=== PATIENT | female | born 1940 | race Caucasian/White ===

== ENCOUNTER → 2017-11-09 12:12 | Outpatient (CLI) | payer MEDICARE, OTHER, SELFPAY ==
--- NOTE | 2017-11-09 | DI.CT.S_ITS ---
PROCEDURE: CT HEAD/BRAIN WO CON INDICATIONS: HEADACHE TECHNIQUE: Noncontrast 4.5 mm thick angled axial sections acquired from the foramen magnum to the vertex, with coronal and sagittal reformats. For radiation dose reduction, the following was used: automated exposure control, adjustment of mA and/or kV according to patient size. COMPARISON: [facility], CT, HEAD WITHOUT CONTRAST, 10/02/2016, 12:38. [facility], CT, HEAD WITHOUT CONTRAST, 02/23/2015, 12:28. [facility], CT, HEAD WITHOUT CONTRAST, 09/15/2013, 11:39. FINDINGS: Image quality: Excellent. CSF spaces: Basal cisterns are patent. No extra-axial fluid collections. The ventricles are symmetric in size and shape. Brain: No intracranial bleeds or masses. There is cerebral volume loss for age, with resultant ventricular and sulcal prominence. There are periventricular and deep white matter chronic small vessel ischemic changes. There is intracranial internal carotid artery atherosclerosis. Skull and face: Calvarium and visualized facial bones appear intact, without suspicious lesions. Sinuses: Visualized sinuses and mastoids are clear. IMPRESSION: No acute process. No explanation for headache. Dictated by: Pieter Browning M.D. on 11/09/2017 at 14:26 Approved by: Pieter Browning M.D. on 11/09/2017 at 14:28
== END ==
PROVIDERS: Family Provider Physician Assistant Medical; PCP Physician Assistant Medical; Visit Provider Physician Assistant Medical
DX: R51 Headache (principal)
CPT/HCPCS: 70450

== ENCOUNTER 2018-04-01 19:41 | Emergency (ER) | payer MEDICARE, OTHER, SELFPAY ==
[2018-04-01] VITALS (7 sets, daily range): BP systolic 137–177; BP diastolic 69–89; PULSE 63–77; RESP 13–19; TEMP 36.6; O2SAT 98–100; BMI 22.5
--- NOTE | 2018-04-01 19:59 | DI.RAD.S_ITS ---
PROCEDURE: XR CHEST 1V INDICATIONS: chest pain TECHNIQUE: One view of the chest was acquired. COMPARISON: [facility], , CHEST 1 VIEW, 02/23/2015, 12:19. FINDINGS: Surgical changes and devices: None. Lungs and pleura: No pleural effusions or pneumothorax. Lungs are clear. Mediastinum: Mediastinal contours appear normal. Heart size is normal. Bones and chest wall: No suspicious bony lesions. Overlying soft tissues appear unremarkable. IMPRESSION: 1. No acute cardiopulmonary disease. Dictated by: Dago Claros M.D. on 04/01/2018 at 20:58 Approved by: Dago Claros M.D. on 04/01/2018 at 20:59
[2018-04-01 20:04] LABS: Add Manual Diff / Slide Review NO; Eosinophils Percent Auto 1.9 % (2-4); Hematocrit 37.6 % (36-46); Hemoglobin 12.8 g/dL (12.0-16.0); Lymphocytes Percent Auto 30.2 % (25-40); Mean Corpuscular Hemoglobin 30.4 PG (26-34); Mean Corpuscular Volume 89.4 fL (80-100); Monocytes Percent Auto 8.1 % (3-14); Neutrophils Absolute Auto 3500 /uL (3000-5900); Neutrophils Percent Auto 58.8 % (50-75); Platelet Count 201 X10^3/uL (150-400); Red Blood Cell Count 4.21 X10^6/uL (4.0-5.2); Red Cell Distribution Width 13.3 % (11.6-14.8)
[2018-04-01 20:08] LABS: INR 1.1 (0.9-1.3); Prothrombin Time 11.7 SECONDS (10.1-12.7)
[2018-04-01 20:11] LABS: PTT Partial Thromboplastin Tim 31 SECONDS (26.4-36.2)
[2018-04-01 20:13] LABS: Alanine Aminotransferase 13 IU/L (9-52); Albumin 4.6 g/dL (3.5-5.0); Albumin Globulin Ratio 1.4 (1.0-2.8); Alkaline Phosphatase 65 U/L (38-126); Aspartate Aminotransferase 31 IU/L (14-36); BUN Creatinine Ratio 23.8 (6-22); Bilirubin Total 0.5 mg/dL (0.2-1.3); Blood Urea Nitrogen 19 mg/dL (7-17); Carbon Dioxide 28 mmol/L (22-32); Chloride 102 mmol/L (98-107); Creatine Kinase 80 U/L (30-135); Estimated Glomerular Filt Rate > 60.0 mL/min (>60); Globulin 3.2 g/dL (1.7-4.1); Glucose 118 mg/dL (80-110); HEMOLYSIS 29 (0-50); Lipase 129 U/L (23-300); Potassium 3.9 mmol/L (3.4-5.1); Sodium 141 mmol/L (137-145); Total Protein 7.8 g/dL (6.3-8.2)
[2018-04-01] MEDS: ASPIRIN 81 MG TAB 324 MG PO (20:16)
[2018-04-01 20:24] LABS: Troponin I < 0.012 ng/mL (0.01-0.034)
--- NOTE | 2018-04-01 20:46 | ED_ITS ---
HPI - Chest Pain General Chief Complaint: Chest Pain Stated Complaint: CHEST PAIN BACK PAIN Time Seen by Provider: 04/01/18 19:50 Source: patient Mode of arrival: ambulatory Limitations: no limitations History of Present Illness HPI narrative: Patient is a 78-year-old female who presents with chest pain has been ongoing for the last couple of days. Today she was feeling extremely nauseated as if she tried to eat something she got very nauseous afterwards. She did have a big mac sometime today which she thinks may be made the pain worse. Sometimes her left arm has hurt it does not hurt now. She does have a history of rib displacement she recently had this she went to a chiropractor as she says that was feeling better she thinks this is different. With her ribs around hurt every time she took of breath this does not feel that way. She states that it seems to be worse when she is at rest but when she notices it the most. She is pretty busy she takes care of her it has not slowed her down today. She just wanted make sure was not a heart attack. MD complaint: chest pain Onset (ago): day(s) Related Data Home Medications Medication Instructions Recorded Confirmed alprazolam 0.25 mg PO Q8HP #0 11/27/11 aspirin 81 mg PO QDAY #0 11/27/11 ramipril [Altace] 5 mg PO QDAY #0 11/27/11 Allergies Allergy/AdvReac Type Severity Reaction Status Date / Time erythromycin base Allergy Unknown HIVES Verified 04/01/18 19:47 Review of Systems Review of Systems GENERAL: Denies chills, fatigue, malaise, fever, sweats, travel HEENT: Denies sinus pain, ear pain, sore throat, difficulty swallowing, neck pain RESPIRATORY: Denies dyspnea, cough, wheezing, hemoptysis, sputum. CARDIOVASCULAR: See HPI GASTROINTESTINAL: Denies nausea, vomiting, abdominal pain, diarrhea, constipation, melena. : Denies dysuria, frequency, incontinence, hematuria, urinary retention, flank pain. MUSCULOSKELETAL: Denies weakness, joint pain, or bony pain SKIN: No rash, no erythema, no pruritus NEUROLOGIC: Denies weakness, dizziness, headache, numbness, change in speech, confusion PSYCHIATRIC: No concerning psychosocial issues. 12 point review of systems is negative except for those stated above and HPI PFSH Medical History Hypertension (Acute) Social History Smoking Status: Former smoker alcohol intake: never substance use type: does not use Exam Initial Vital Signs Initial Vital Signs: Vital Signs Temperature 97.9 F 04/01/18 19:47 Pulse Rate 77 04/01/18 19:47 Respiratory Rate 16 04/01/18 19:47 Blood Pressure 177/89 H 04/01/18 19:47 Pulse Oximetry 100 04/01/18 19:47 GENERAL: Alert well-appearing elderly female in no acute distress HEENT: Head atraumatic,EOMI, pupils reactive, face symmetric, CARDIOVASCULAR: Regular rate and rhythm without murmurs, rubs or gallops. RESPIRATORY: Breath sounds equal bilaterally, no wheezes rales or rhonchi. ABDOMEN: Soft, nontender. Normoactive bowel sounds all 4 quadrants. No guarding or rebound. EXTREMITIES: Normal range of motion, no clubbing or edema. Neurovascularly intact NEUROLOGICAL: Alert and oriented x4.Normal gait and speech. SKIN: Warm, dry, no laceration, no petechiae, no rashes or lesions. Scores HEART Score Heart Score history: Slightly Suspicious Heart Score EKG: Normal Heart Score Age: > or = 65 years old Heart Score risk factors: 1-2 risk factors Heart Score troponin: < or = to normal limit Heart Score Total: 3 Course Orders Ordered: ED Orders 04/01/18 19:55 Complete Blood Count AUTO DIFF Stat Comprehensive Metabolic Panel Stat Lipase Stat Partial Thromboplastin Time Stat Prothrombin Time INR Stat Troponin & CK Cardiac Panel Stat 04/01/18 19:59 XR chest 1V Stat EKG-12 Lead Stat 04/01/18 22:02 Troponin I Stat Discontinued Medications Acetaminophen (Tylenol) 650 mg PO NOW ONE Stop: 04/01/18 21:27 Last Admin: 04/01/18 21:41 Dose: 650 mg Aspirin (Aspirin Chew) 324 mg PO NOW ONE Stop: 04/01/18 20:12 Last Admin: 04/01/18 20:16 Dose: 324 mg Pantoprazole Sodium (Protonix) 40 mg IV NOW ONE Stop: 04/01/18 21:27 Last Admin: 04/01/18 21:41 Dose: 40 mg Vital Signs - 8 hr 04/01/18 20:00 04/01/18 20:30 04/01/18 21:00 Pulse Rate 71 71 68 Respiratory Rate 19 15 13 Blood Pressure Blood Pressure [Left Arm] 161/83 H 144/74 H 145/87 H Pulse Oximetry 100 98 99 04/01/18 21:30 04/01/18 22:00 04/01/18 22:46 Pulse Rate 72 63 67 Respiratory Rate 15 15 19 Blood Pressure 140/69 Blood Pressure [Left Arm] 137/75 147/80 H Pulse Oximetry 100 99 100 MDM - Chest Pain Lab Data Attestation: I reviewed the patient's lab results. Result diagrams: 04/01/18 19:55 04/01/18 19:55 Lab Results 04/01/18 04/01/18 04/01/18 Range/Units 19:55 19:55 19:55 WBC 6.0 (4.5-11.0) X10^3/uL RBC 4.21 (4.0-5.2) X10^6/uL Hgb 12.8 (12.0-16.0) g/dL Hct 37.6 (36-46) % MCV 89.4 (80-100) fL MCH 30.4 (26-34) PG MCHC 34.0 (30-36) % RDW 13.3 (11.6-14.8) % Plt Count 201 (150-400) X10^3/uL Neut % (Auto) 58.8 (50-75) % Lymph % (Auto) 30.2 (25-40) % Huntington % (Auto) 8.1 (3-14) % Eos % (Auto) 1.9 L (2-4) % Baso % (Auto) 1.0 (0-2) % Neut # (Auto) 3500 (8146-5077) /uL PT 11.7 (10.1-12.7) SECONDS INR 1.1 (0.9-1.3) APTT 31 (26.4-36.2) SECONDS Sodium 141 (137-145) mmol/L Potassium 3.9 (3.4-5.1) mmol/L Chloride 102 (98-107) mmol/L Carbon Dioxide 28 (22-32) mmol/L BUN 19 H (7-17) mg/dL Creatinine 0.80 (0.52-1.04) mg/dL Estimated GFR > 60.0 (>60) mL/min BUN/Creatinine Ratio 23.8 H (6-22) Glucose 118 H (80-110) mg/dL Calcium 10.0 (8.4-10.2) mg/dL Total Bilirubin 0.5 (0.2-1.3) mg/dL AST 31 (14-36) IU/L ALT 13 (9-52) IU/L Alkaline Phosphatase 65 (38-126) U/L Total Creatine Kinase 80 (30-135) U/L CK-MB (CK-2) TNP CK-MB (CK-2) Rel Index TNP Troponin I < 0.012 (0.01-0.034) ng/mL Total Protein 7.8 (6.3-8.2) g/dL Albumin 4.6 (3.5-5.0) g/dL Globulin 3.2 (1.7-4.1) g/dL Albumin/Globulin Ratio 1.4 (1.0-2.8) Lipase 129 (23-300) U/L /06/07 Range/Units 22:02 WBC (4.5-11.0) X10^3/uL RBC (4.0-5.2) X10^6/uL Hgb (12.0-16.0) g/dL Hct (36-46) % MCV (80-100) fL MCH (26-34) PG MCHC (30-36) % RDW (11.6-14.8) % Plt Count (150-400) X10^3/uL Neut % (Auto) (50-75) % Lymph % (Auto) (25-40) % Huntington % (Auto) (3-14) % Eos % (Auto) (2-4) % Baso % (Auto) (0-2) % Neut # (Auto) (6733-3460) /uL PT (10.1-12.7) SECONDS INR (0.9-1.3) APTT (26.4-36.2) SECONDS Sodium (137-145) mmol/L Potassium (3.4-5.1) mmol/L Chloride (98-107) mmol/L Carbon Dioxide (22-32) mmol/L BUN (7-17) mg/dL Creatinine (0.52-1.04) mg/dL Estimated GFR (>60) mL/min BUN/Creatinine Ratio (6-22) Glucose (80-110) mg/dL Calcium (8.4-10.2) mg/dL Total Bilirubin (0.2-1.3) mg/dL AST (14-36) IU/L ALT (9-52) IU/L Alkaline Phosphatase (38-126) U/L Total Creatine Kinase (30-135) U/L CK-MB (CK-2) CK-MB (CK-2) Rel Index Troponin I < 0.012 (0.01-0.034) ng/mL Total Protein (6.3-8.2) g/dL Albumin (3.5-5.0) g/dL Globulin (1.7-4.1) g/dL Albumin/Globulin Ratio (1.0-2.8) Lipase (23-300) U/L Imaging Data Chest x-ray: Radiologist's impression: PROCEDURE: XR CHEST 1V INDICATIONS: chest pain TECHNIQUE: One view of the chest was acquired. COMPARISON: [facility], CHEST 1 VIEW, 02/23/2015, 12:19. FINDINGS: Surgical changes and devices: None. Lungs and pleura: No pleural effusions or pneumothorax. Lungs are clear. Mediastinum: Mediastinal contours appear normal. Heart size is normal. Bones and chest wall: No suspicious bony lesions. Overlying soft tissues appear unremarkable. IMPRESSION: 1. No acute cardiopulmonary disease. Dictated by: Dago Claros M.D. on 04/01/2018 at 20:58 ECG Data Attestation: I personally reviewed and interpreted this ECG as follows: Prior ECG tracings: available for review Interpretation: EKG 1.: Normal sinus rhythm rate [address] changes no T- wave inversions similar to previous EKG in 2014 EKG 2. Sinus rhythm rate 61 normal intervals similar to previous EKG no ischemia MDM Narrative Medical decision making narrative: Patient overall is feeling much better after Protonix. She states that she actually did see Dr. Smith at some point a few years ago she had a cardiac catheterization, which per patient she said is normal. She has 2-troponins normal ECGs is chest pain-free after Protonix. The pain in symptoms not consistent with cardiac. At this time recommend outpatient workup if needed. I discussed all findings with the patient and daughter, Education has been performed regarding treatment plan, diagnosis, warning signs and symptoms and all concerns have been addressed. Verbally agree with and understood all of the above. Discharge Plan Departure Patient Disposition: Home Clinical Impression: Atypical chest pain Discharge Date/Time: 04/01/18 22:47 Interventions: ED Discharge Assessment Last Done: 04/01/18 22:46 Instructions: DI for Atypical Chest Pain Activity Restrictions/Additional Instructions: *You have been diagnosed with atypical chest *What to do: may require further cardiac evaluation with your primary doctor or your compliance and control analyst *Continue to take medications as directed *Follow up with your primary care provider in 2-3 days *Return to ER if you should have worsening chest pain, shortness of breath, nausea or any new, worsening or concerning symptoms Prescriptions: No Action aspirin 81 MG tablet,delayed release (DR/EC) 81 mg PO QDAY Qty: 0 RF: 0 alprazolam 0.25 MG tablet 0.25 mg PO Q8HP Qty: 0 RF: 0 ramipril [Altace] 5 MG capsule 5 mg PO QDAY Qty: 0 RF: 0 Referrals: Su Zhu PA-C [Primary Care Provider] -
[2018-04-01] MEDS: ACETAMINOPHEN 325 MG TABLET 650 MG PO (21:41)
[2018-04-01] MEDS: PANTOPRAZOLE 40 MG VIAL IV (21:41)
[2018-04-01 22:31] LABS: Troponin I < 0.012 ng/mL (0.01-0.034)
== END 2018-04-01 22:47 | disposition home or self-care (01) ==
PROVIDERS: Emergency Provider Emergency Medicine; Family Provider Physician Assistant Medical; PCP Physician Assistant Medical
DX: R07.89 Other chest pain (principal)
CPT/HCPCS: 36415; 36591; 71045; 80053; 82550; 83690; 84484; 85025; 85610; 85730; 93005; 93010; 96374; 99283; 99285; C9113

== ENCOUNTER → 2018-04-18 13:40 | Outpatient (CLI) | payer MEDICARE, OTHER, SELFPAY ==
--- NOTE | 2018-04-18 14:53 | PM.TREADMILL ---
Cardiac Stress Test Report Referral & Results Date Patient Seen: 04/18/18 Requesting provider: Marlyn Clifford Indication: Atypical chest pain Rest ECG: Unremarkable Procedure Note: Today following both written and verbal informed consent, the patient was exercised according to a standard Josiah protocol. The patient exercised for a total of 6 min 22 sec achieving a maximum heart rate of 157. Patient's maximum systolic blood pressure was 180. This was an estimated 7.0 MET's. With exercise patient did develop up to about a mm of flat to upsloping ST segment depression in the inferior leads and far lateral leads. These rapidly resolved in recovery although they still were somewhat depressed over baseline. Patient was asymptomatic. Functional aerobic impairment was off the scale estimate at-20% on the active scale Rare PVCs were also identified Impression: I cannot call this a normal study. There may be an element of ischemia present given the ST segment changes but they are very nonspecific and atypical. Given patient's excellent exercise capacity and worse I have a call this a low risk study. If clinical condition warrants this could be repeated with perfusion imaging as well. Discussed with patient before she left the procedure room as well. Please note: Actual ECG tracings can be found in the PACS system.
== END ==
PROVIDERS: PCP Physician Assistant Medical; Visit Provider Nurse Practitioner
DX: R07.89 Other chest pain (principal); R94.39 Abnormal result of other cardiovascular function study
CPT/HCPCS: 93016; 93017; 93018

== ENCOUNTER → 2018-05-20 08:05 | Outpatient (CLI) | payer MEDICARE, OTHER, SELFPAY ==
--- NOTE | 2018-05-20 10:18 | P.PCN_ITS ---
Cardiac Stress Test Report Referral & Results Date Patient Seen: 05/20/18 Requesting provider: Su Zhu Indication: Abnormal previous treadmill Rest ECG: Unremarkable Procedure Note: Today following both written and verbal informed consent the patient was exercised according to a standard Joisah protocol patient went for a total of 6 min 20 sec achieving a maximum heart rate of 146 maximum systolic blood pressure of 170. This is approximately 7.0 METS. Exercise was terminated at this point because of targets having been met. Patient was also given Cardiolite through a previously started Hep-Lock IV by the nuclear equipment test engineer approximately 1 minute prior to the cessation of exercise. There were no ST-T segment changes identified this time as opposed to her previous treadmill Functional aerobic impairment rated-5% on the active scale or 105% of normal Impression: No evidence of ischemia, changes seen previously that were nonspecific are not seen this time. Perfusion imaging to be reported separately Please note: Actual ECG tracings can be found in the PACS system.
--- NOTE | 2018-05-23 16:34 | DI.NM.S_ITS ---
DATE OF SERVICE: 05/20/2018 PROCEDURE: Exercise perfusion study. INDICATIONS: Chest pain, back pain with underlying hypertension, hyperlipidemia. RADIOPHARMACEUTICAL: 25.5 mCi technetium-99m Myoview IV was injected at stress and 25.0 mCi technetium-99m Myoview IV was injected at rest. CARDIAC STRESS: Patient underwent exercise perfusion study under the supervision of an attending staff using standard Josiah protocol. She walked on Josiah protocol for 6 minutes 20 seconds and achieved 7 METs of workload with functional aerobic impairment of -5%. She achieved 103% of target heart rate. There is normal blood pressure response. No active chest pain. Baseline rhythm was sinus. During stress, there were some nonspecific upsloping ST depression in the inferolateral leads. No significant arrhythmias seen. RAW DATA: There appears to be increased subdiaphragmatic activity. GATED STUDY: Resting LV ejection fraction 76 and stress LV ejection fraction reported to be 91%. I don't see any obvious wall motion abnormalities. No transient ischemic dilatation. Resting end-diastolic volume is 59 mL. TID ratio is 0.67, which is within normal limits. Lung/heart ratio is 0.30, which is within normal limits. MYOCARDIAL PERFUSION SCAN: Resting supine images revealed moderate-sized mild-to - moderately decreased perfusion of inferior wall, basal inferoseptum. Stress supine images revealed small size mildly decreased perfusion of base- to-mid inferior wall. During prone, all those perfusion defects got normalized. No convincing ischemia infarction seen during stress prone images. CONCLUSION: I will call this study a normal myocardial perfusion study with evidence of most likely diaphragmatic tissue attenuation artifact which got resolved during prone images. Left ventricular (LV) function is preserved. No transient ischemic dilatation. Functional aerobic impairment -5%. No significant arrhythmias. Overall this is a low-risk myocardial perfusion scan. Mary Solo - [employer]/gris/ab doc#: [id number]/job#: [id number] dd: 05/23/2018 12:36:00 dt: 05/23/2018 15:59:00 DICTATING MD/COPIES TO: Coco Foreman MD COPIES MNE: NIC
== END ==
PROVIDERS: PCP Physician Assistant Medical; Visit Provider Physician Assistant Medical
DX: R94.39 Abnormal result of other cardiovascular function study (principal); R07.9 Chest pain, unspecified; M54.9 Dorsalgia, unspecified; I10 Essential (primary) hypertension; E78.5 Hyperlipidemia, unspecified
CPT/HCPCS: 78452; 93016; 93017; 93018; A9502

== ENCOUNTER → 2020-07-12 13:36 | Outpatient (CLI) | payer MEDICARE, OTHER, SELFPAY ==
--- NOTE | 2020-07-12 | DI.ECHO.S_ITS ---
[facility]---------+ [facility] +---------+ : : [address] [place] : : : : [id number] : : : : Phone: [phone] Echocardiogram Report + + :Name: SAMUEL FERMIN Study Date: 07/12/2020 Height: 68 in : :[facility] ReadingLocation: Weight: 145 lb : : Gender: Female BSA: 1.8 m2 : :: 1940 Age: 80 yrs BP: 152/81 mmHg: :Reason For Study: Chest Pain : :Ordering Physician: SOMMER, : :BLAYNE Performed By: Chapis Gunderson : :Referring: BLAYNE NOVOA : + + Interpretation Summary Normal both left and right ventricle size and function. The ejection fraction is 60-65%. Normal both atria. No valvular abnormality. Comparison is made with the echocardiogram of 03/21/2015, there has been no significant change. Procedure: A two-dimensional transthoracic echocardiogram with color flow and Doppler was performed. The study quality was technically adequate. Comparison is made with the echocardiogram of 03/21/2015. The patient was in normal sinus rhythm during the exam. Left Ventricle: The left ventricle is normal in size and wall thickness. The ejection fraction is estimated to be 60-65%. There are no focal wall motion abnormalities. Right Ventricle: The right ventricle is normal in size and function. Atria: The left atrial size is normal. Right atrial size is normal. There is no Doppler evidence for an interatrial shunt. Mitral Valve: The mitral valve is normal in structure and function. There is trace mitral regurgitation. Aortic Valve: The aortic valve is trileaflet. The aortic valve opens well. No aortic regurgitation is present. Tricuspid Valve: The tricuspid valve is normal in structure and function. There is a trace or physiologic amount of tricuspid regurgitation. The right ventricular systolic pressure is estimated to be at least 23 mmHg based on an estimated right atrial pressure of 3 mm Hg. Pulmonic Valve: The pulmonic valve leaflets are thin and pliable; valve motion is normal. There is a trace or physiologic amount of pulmonic regurgitation. Great Vessels: The aortic root is normal size. The ascending aorta could not be visualized. The pulmonary artery is not well visualized, but is probably normal size. The IVC is of normal diameter and collapses greater than 50% with a sniff. This suggests a low right atrial pressure of 3 mm Hg. Pericardium/ Pleura There is no pericardial effusion. MMode/2D Measurements & Calculations LVIDd: 4.6 cm LVOT diam: 2.1 cm LVIDs: 2.5 cm Ao root diam: 3.4 cm FS: 46.3 % Ao Arch Diam (distal): 2.7 cm IVSd: 0.61 cm LVPWd: 0.62 cm LV singh. diameter/BSA (cm/m^2): 2.6 LV sys. diameter/BSA (cm/m^2): 1.4 LA A2 area: 15.7 cm2 RA long axis: 5.3 cm LA A4 area: 18.9 cm2 RA area: 16.7 cm2 LA length (vol): 4.7 cm RA vol: 45.1 ml LA vol: 53.0 ml RA : 25.3 ml/m2 LA vol index: 29.7 ml/m2 IVC diam: 1.5 cm RVD1 (basal): 3.1 cm TAPSE: 1.8 cm Doppler Measurements & Calculations Ao V2 max: 99.0 cm/sec LVOT Max Osmin: 87.4 cm/sec Ao V2 mean: 68.3 cm/sec LV V1 max P.1 mmHg Ao max P.9 mmHg LV V1 VTI: 16.9 cm Ao mean P.1 mmHg LUIS ALBERTO(I,D): 3.1 cm2 Ao V2 VTI: 17.9 cm LUIS ALBERTO(V,D): 2.9 cm2 sev ratio: 0.94 LUIS ALBERTO indexed to BSA (cm^2/m^2): 1.8 MV E max osmin: 106.9 cm/sec TR max osmin: 221.3 cm/sec MV A max osmin: 35.7 cm/sec TR max P.6 mmHg MV E/A: 3.0 PA V2 max: 82.4 cm/sec Med Peak E' Osmin: 13.5 cm/sec PA V2 mean: 53.1 cm/sec E/E' med: 7.9 PA mean P.3 mmHg Lat Peak E' Osmin: 14.7 cm/sec PA Accel Time: 0.12 sec E/E' lat: 7.3 E/e' average: 7.6 MV dec time: 0.18 sec SV(LVOT): 56.3 ml Electronically signed by: Gabriel Ryder on Reading Physician:07/12/2020 04:54 PM
== END ==
PROVIDERS: PCP Physician Assistant Medical; Referring Provider Physician Assistant Medical; Visit Provider Physician Assistant Medical
DX: R07.89 Other chest pain (principal)
CPT/HCPCS: 93306

== ENCOUNTER → 2025-03-16 12:00 | Outpatient (CLI) | payer MEDICARE, OTHER, SELFPAY ==
--- NOTE | 2025-03-16 12:02 | DI.NM.S_ITS ---
PROCEDURE: NM SHANNAN PERF SPECT R&S PHARM Rest and pharmacological stress myocardial perfusion SPECT with gated imaging and ejection fraction RADIOPHARMACEUTICAL: 26.4 mCi Tc-99m tetrafosmin IV at rest and 27.1 mCi Tc-99m tetrafosmin IV at peak effect of pharmacological stress. [id number] was performed. INDICATIONS: NUCLEAR TECHNIQUE: Radiopharmaceutical was injected at peak stress test, and also at rest. SPECT images were obtained. SPECT myocardial perfusion images were displayed in short axis, horizontal long axis, and vertical long axis views. Gated images were reviewed using [employer] software. COMPARISON: None. CARDIAC STRESS: A pharmacologic stress test was performed under the supervision of an attending staff, using an infusion of lexiscan 0.4mg IV X1. Hemodynamic data: There is normal blood pressure and heart rate response to pharmacologic stress. Symptoms: The patient denied anginal chest pain. Aminophylline: none EKG: No diagnostic changes of ischemia; no ectopy. FINDINGS: Raw data: There is good myocardial uptake of radiotracer. No significant motion artifacts. Sjfq-ea-jqiuz ratio is 0.34 (normal is less than 0.38 for tetrafosmin tracer). Left ventricle function: Gated images demonstrate normal left ventricular wall thickening. No segmental wall motion abnormalities. No transient ischemic dilation; TID is 0.96 (normal less than 1.3). Left ventricle resting end diastolic volume is 66 mL. Left ventricle stress ejection fraction is 90%; normal range is above 45%. Myocardial perfusion: There is normal distribution of activity in the right and left ventricular myocardium. No fixed or reversible perfusion defects. SSS 0. IMPRESSION: Low risk, normal pharm nuclear stress test from inducible ischemia standpoint. Normal left ventricular size, wall motion, and systolic function. No angina during the study. Dictated by: Khris Galeana MD on 03/28/2025 at 12:42 Approved by: Khris Galeana MD on 03/28/2025 at 12:43
== END ==
PROVIDERS: PCP Physician Assistant Medical; Referring Provider Physician Assistant Medical; Visit Provider Physician Assistant Medical
DX: R07.9 Chest pain, unspecified (principal)
CPT/HCPCS: 78452; 93017; A9502; J2785